=== PATIENT | female | born 1940 | race Caucasian/White ===

== ENCOUNTER 2017-01-05 16:23 | Emergency (ER) | payer BC ==
[~2017-01-05] VITALS: Ht 154.9 cm; Wt 46.0 kg
[~2017-01-05 16:23] MED LIST: Amoxicillin/Clavulanate Potas PO; DONE23TA PO; LISI-461 PO; MEMA10TA PO; SIMV5TAB2 PO
[2017-01-05 16:44] VITALS: BP 141/83; TEMP 36.4; Ht 154.9 cm; Wt 46.0 kg
[2017-01-05] MEDS ORDERED: CHOL20009 PO (16:53)
[2017-01-05] MEDS ORDERED: NRV/10 PO (16:53)
--- NOTE | 2017-01-05 18:31 | EMERGENCY ROOM VISIT NOTE ---
History First contact with patient: 16:48 Chief Complaint: FALL Stated Complaint: FELL AT ADULT DAY CARE,POSSIBLE LF LEG INJURY History of Present Illness The patient is a 76 year old female who presents to the Emergency Room with complaints of fall. The patient has severe dementia and Alzheimer's. She goes to adult daycare. Today, she was walking the halls and was thought to have tripped over a rug. The patient was assisted up off the floor. She seemed to be favoring her left leg per staff but the patient's family member believes she was favoring her right leg. They deny any loss of consciousness or head injury. The patient does not complain of any pain. The patient has had some swelling in the bilateral lower extremities. She did see her family doctor on Sunday. Review of Systems A 10 system review of systems was completed with positives and pertinent negatives listed in the HPI. The history was obtained from the family member given the baseline dementia Past Medical/Surgical History Medical Problems: (1) Alzheimer's Disease (2) Cataract Nos (3) Hypertension Nos (4) Idiopathic Scoliosis (5) Thoracogenic Scoliosis Social History Smoking Status: Never Smoker Alcohol Use: none Drug Use: none Marital Status: Housing Status: lives with family Occupation Status: retired Current/Historical Medications Scheduled Amlodipine Besylate (Amlodipine Besylate), 10 MG PO DAILY Cholecalciferol (Vitamin D), 2,000 UNITS PO DAILY Donepezil Hydrochloride (Aricept), 1 TAB PO DAILY Lisinopril (Lisinopril), 1 TAB PO DAILY Memantine Hcl (Namenda), 10 MG PO BID Allergies Coded Allergies: No Known Allergies (Unverified , 07/18/15) Physical Exam Vital Signs Date Time Temp Pulse Resp B/P Pulse Ox O2 Delivery O2 Flow Rate FiO2 01/05/17 19:26 72 12 99 01/05/17 16:44 36.4 101 18 141/83 98 Room Air Physical Exam VITALS: Vitals are noted on the nurse's note and reviewed by myself. Vital signs stable. GENERAL: This is a 76 year old female, in no acute distress, nondiaphoretic, well-developed well-nourished. SKIN: The skin was without rashes, erythema, edema, or bruising. There is no tenting of the skin. Capillary reflex less than 2 seconds. HEAD: Normocephalic atraumatic. EARS: External auditory canals clear, tympanic membranes pearly beard without erythema or effusion bilaterally. EYES: Pupils equal round and reactive to light and accommodation. Conjunctivae without injection, sclerae without icterus. Extraocular movements intact. NOSE: Patent, turbinates without inflammation or discharge. No sinus tenderness. MOUTH: Mucous membranes moist. Tonsils are not enlarged. Pharynx without erythema or exudate. Uvula midline. Airway patent. Tongue does not deviate. NECK: Supple without nuchal rigidity. No lymphadenopathy. No thyromegaly. Cervical spine is nontender. No JVD. HEART: Regular rate and rhythm without murmurs gallops or rubs. LUNGS: Clear to auscultation bilaterally without wheezes, rales or rhonchi. No dullness to percussion. No retractions or accessory muscle use. ABDOMEN: Positive bowel sounds x 4. Normal tympanic percussion. Soft, nontender, without masses or organomegaly. Jade sign negative. MUSCULOSKELETAL: No muscle atrophy, erythema, or edema noted. Full range of motion without joint tenderness in all extremities. No tenderness to palpation. Normal gait. Strength 5/5 throughout. NEURO: Patient was alert and oriented to person place and time. Normal sensation to light and sharp touch. Deep tendon reflexes 2+ throughout. No focal neurological deficits. Medical Decision & Procedures ER Provider Diagnostic Interpretation: LEFT TIBIA/FIBULA 2 VIEWS ROUTINE, LEFT ANKLE MIN 3 VIEWS ROUTINE CLINICAL HISTORY: fall, left leg pain COMPARISON STUDY: None. FINDINGS: Subcutaneous edema and superficial varicosities within the left lower leg. Small plantar heel spur. No acute fracture or dislocation. No radiopaque foreign bodies. Minimal periosteal reaction along the lateral masses of the distal fibula. IMPRESSION: 1. No acute fracture or dislocation within the left tibia, fibula, left ankle. 2. Diffuse subcutaneous edema. 3. Minimal periosteal reaction along the distal left fibula. This is nonspecific but favors long-standing venous stasis. An occult healing fracture could also have a similar appearance but is considered less likely. Follow-up radiograph in 2 weeks can be used for confirmation if clinically wanted. [~ rep ct add3]] PELVIS 1 OR 2 VIEW ROUTINE, LEFT FEMUR 2 VIEWS ROUTINE, RIGHT FEMUR 2 VIEWS ROUTINE CLINICAL HISTORY: fall. Pelvis and bilateral femur pain. COMPARISON STUDY: Right femur 07/19/2015. FINDINGS: Severe levoscoliosis within the lumbar spine. No fracture or dislocation within the pelvis or hips. Left downward tilt of the pelvis which is likely result of the scoliosis. Mild chondrocalcinosis within the bilateral hips. No fractures within the right or left femur. Diffuse muscle atrophy. An 18 mm patchy area of sclerosis within the distal left femur. This favors benign enchondroma. IMPRESSION: No fracture or dislocation within the pelvis, hips, or femurs. ED Course The patient was seen and examined. Previous visits were reviewed. The patient sustained a fall today. Examination and history are quite difficult given the patient's severe Alzheimer's and dementia. The patient seemed to have the most tenderness to palpation of the left ankle. On x-ray, there is periosteal reaction likely related to chronic venous stasis changes. There is no acute fracture. The patient's family member was advised to have repeat x-rays in 2 weeks if symptoms persist. The patient has had ongoing bilateral pedal edema. They were advised to follow-up with the family doctor regarding this. They were advised to elevate the legs as much as possible. They should return with any worsening symptoms. The patient was also seen and examined by who agrees with the assessment and treatment plan. Medical Decision The differential diagnosis includes contusion, sprain, strain, fracture, among others Impression Primary Impression: Fall Additional Impression: Pedal edema Departure Information Dispostion Home / Self-Care Condition GOOD Referrals Jarad Dominguez DO (PCP) Patient Instructions [facility] Additional Instructions Rest Elevate the legs as much as possible Recheck with Dr. Dominguez next week Return with worsening symptoms Problem Qualifiers
--- NOTE | 2017-01-05 18:41 | DIAGNOSTIC IMAGING REPORT ---
LEFT TIBIA/FIBULA 2 VIEWS ROUTINE, LEFT ANKLE MIN 3 VIEWS ROUTINE CLINICAL HISTORY: fall, left leg pain COMPARISON STUDY: None. FINDINGS: Subcutaneous edema and superficial varicosities within the left lower leg. Small plantar heel spur. No acute fracture or dislocation. No radiopaque foreign bodies. Minimal periosteal reaction along the lateral masses of the distal fibula. IMPRESSION: 1. No acute fracture or dislocation within the left tibia, fibula, left ankle. 2. Diffuse subcutaneous edema. 3. Minimal periosteal reaction along the distal left fibula. This is nonspecific but favors long-standing venous stasis. An occult healing fracture could also have a similar appearance but is considered less likely. Follow-up radiograph in 2 weeks can be used for confirmation if clinically wanted. Electronically signed by: Rafa Tirado M.D. 01/05/2017 6:39 PM Dictated Date/Time: 01/05/2017 6:35 PM
--- NOTE | 2017-01-05 18:45 | DIAGNOSTIC IMAGING REPORT ---
PELVIS 1 OR 2 VIEW ROUTINE, LEFT FEMUR 2 VIEWS ROUTINE, RIGHT FEMUR 2 VIEWS ROUTINE CLINICAL HISTORY: fall. Pelvis and bilateral femur pain. COMPARISON STUDY: Right femur 07/19/2015. FINDINGS: Severe levoscoliosis within the lumbar spine. No fracture or dislocation within the pelvis or hips. Left downward tilt of the pelvis which is likely result of the scoliosis. Mild chondrocalcinosis within the bilateral hips. No fractures within the right or left femur. Diffuse muscle atrophy. An 18 mm patchy area of sclerosis within the distal left femur. This favors benign enchondroma. IMPRESSION: No fracture or dislocation within the pelvis, hips, or femurs. Electronically signed by: Rafa Tirado M.D. 01/05/2017 6:43 PM Dictated Date/Time: 01/05/2017 6:39 PM
[2017-01-05 19:26] VITALS: PULSE 72; O2SAT 99
[2017-05-27] MEDS ORDERED: [UNRECOGNIZED DRUG - OTHER] (11:54)
[2017-05-27] MEDS ORDERED: LISI-725 PO (11:54)
[2017-05-27] MEDS ORDERED: DORZ1SOL6 OPB (11:54)
[2017-05-27] MEDS ORDERED: POLY1SOL6 OPB (11:54)
[2017-05-27] MEDS ORDERED: ACET-1311 PO (11:54)
[2017-05-28] MEDS ORDERED: DLCS PR (10:56)
[2017-05-28] MEDS ORDERED: RXC5 PO ×2 (10:56→12:47)
[2017-05-28] MEDS ORDERED: SENN8.6T7 PO (10:56)
[2017-05-28] MEDS ORDERED: MRLP17X PO (10:56)
== END 2017-01-05 19:28 | disposition home or self-care (01) ==
LOC: C.EDB 16:24 → C.EDD 19:28
DX: R60.9 Edema, unspecified (principal); W01.0XXA Fall on same level from slipping, tripping and stumbling without subsequent striking against object, initial encounter; Y92.129 Unspecified place in nursing home as the place of occurrence of the external cause; I10 Essential (primary) hypertension; G30.9 Alzheimer's disease, unspecified; F02.80 Dementia in other diseases classified elsewhere, unspecified severity, without behavioral disturbance, psychotic disturbance, mood disturbance, and anxiety; Z79.899 Other long term (current) drug therapy

== ENCOUNTER → 2017-05-08 | Outpatient (CLI) | payer BC ==
[~2017-05-08] MED LIST changes: +ACET-1311 PO; -Amoxicillin/Clavulanate Potas PO; +CHOL20009 PO; +DLCS PR; +DORZ1SOL6 OPB; +LISI-725 PO; +MRLP17X PO; +NRV/10 PO; +POLY1SOL6 OPB; +RXC5 PO; +SENN8.6T7 PO; -SIMV5TAB2 PO; +[UNRECOGNIZED DRUG - OTHER]
[2017-05-08 12:33] LABS: ESTIMATED AVERAGE GLUCOSE 117 mg/dl; HA1C FLAG Normal (Normal)
[2017-05-08 13:23] LABS: ALT/SGPT 30 U/L (12-78); AST/SGOT 23 U/L (15-37); BLOOD UREA NITROGEN 30 mg/dl (7-18); BUN/CREATININE RATIO 29.7 (10-20); CARBON DIOXIDE 27 mmol/L (21-32); CHLORIDE 108 mmol/L (98-107); GLUCOSE 76 mg/dl (70-99); POTASSIUM 4.1 mmol/L (3.5-5.1); SODIUM 142 mmol/L (136-145)
[2017-05-08 13:24] LABS: CHOLESTEROL 198 mg/dl (0-200); TRIGLYCERIDES 84 mg/dl (0-150); VERY LOW DENSITY LIPOPROT CALC 17 mg/dl
[2017-05-08 13:26] LABS: ALB/GLOB RATIO 0.9 (0.9-2); ALKALINE PHOSPHATASE 82 U/L (45-117); CALCIUM 9.4 mg/dl (8.5-10.1); HDL CHOLESTEROL 97 mg/dl; LDL CHOLESTEROL CALCULATED 84 mg/dl
--- NOTE | 2017-05-15 07:12 | CODING QUERY MEDICAL NECESSITY ---
CQSUPPORTING DIAGNOSIS NEEDED A supporting diagnosis is required for the test/procedure performed on this patient in order for us to be reimbursed by the patient's insurance. Please provide a supporting diagnosis for the following test/procedure listed below next to the test name along with your signature. *If there is no additional diagnosis for this patient that would support the following test/procedure please document that below next to the test/procedure. Test(s)/Procedure(s) that require a supporting diagnosis: RAJI 05/08/17 GLYCATED HEMOGLOBIN TEST Provider Signature: Date: Thank you Aleja Hansen Health Information Management Once completed, please kindly fax back to [phone] For questions please call [phone]
== END ==
LOC: C.LABCC 10:11
PROVIDERS: ATTEND Internal Medicine
DX: E78.5 Hyperlipidemia, unspecified (principal); E55.9 Vitamin D deficiency, unspecified; E11.9 Type 2 diabetes mellitus without complications

== ENCOUNTER → 2017-05-25 | Outpatient (CLI) | payer BC ==
[2017-05-25 17:42] LABS: URINE APPEARANCE CLEAR (CLEAR); URINE BILIRUBIN NEG (NEG); URINE COLOR YELLOW; URINE NITRITE NEG (NEG); URINE PH 6.5 (4.5-7.5); URINE SPECIFIC GRAVITY 1.024 (1.000-1.030); UROBILINOGEN NEG (NEG)
[2017-05-25 17:44] LABS: MANUAL MICROSCOPIC REQUIRED? NO; REVIEW REQ? NO
== END ==
LOC: C.LABSPEC 16:42
PROVIDERS: ATTEND Internal Medicine
DX: R41.0 Disorientation, unspecified (principal)

== ENCOUNTER 2017-05-26 17:50 | Inpatient (IN) | payer BC, OTHER ==
[~2017-05-26] VITALS: Ht 154.9 cm; Wt 52.0 kg
[~2017-05-26 17:50] MED LIST changes: -ACET-1311 PO; -DLCS PR; -DORZ1SOL6 OPB; -LISI-725 PO; -MRLP17X PO; -POLY1SOL6 OPB; -RXC5 PO; -SENN8.6T7 PO; -[UNRECOGNIZED DRUG - OTHER]
[2017-05-26 18:40] VITALS: Ht 154.9 cm; Wt 52.0 kg
[2017-05-26] MEDS ORDERED: ALUMINUM/MAGNESIUM/SIMETH (MAALOX MAX) 30 ML UDC PO PRN (19:15)
[2017-05-26] MEDS ORDERED: OXYCODONE HCL IR 5 MG TAB (IMMEDIATE RELEASE) PO PRN ×2 (19:15)
[2017-05-26] MEDS ORDERED: ENOXAPARIN 40 MG/0.4 ML SYR SQ SCH (19:15)
[2017-05-26] MEDS ORDERED: ACETAMINOPHEN 325 MG TAB PO PRN (19:15)
[2017-05-26] MEDS ORDERED: ONDANSETRON INJ 2 MG/ML 2 ML VIAL IV PRN (19:15)
[2017-05-26] MEDS ORDERED: SOD PHOSPHATE/SOD BIPHOSPHATE ENEMA 132 ML BTL PR PRN (19:15)
[2017-05-26] MEDS ORDERED: NALOXONE HCL 0.4 MG/1 ML VIAL/CARP IV PRN (19:15)
[2017-05-26] MEDS ORDERED: POLYETHYLENE (MIRALAX) 17 GM PACK PO PRN ×2 (19:15)
[2017-05-26] MEDS ORDERED: MAGNESIUM HYDROXIDE SUSP 30 ML UDC PO PRN ×2 (19:15)
[2017-05-26] MEDS ORDERED: BISACODYL 10 MG SUPP PR PRN (19:15)
--- NOTE | 2017-05-26 19:54 | History and Physical ---
History & Physical Date of Service May 26, 2017. History & Physical admit #[id number]
--- NOTE | 2017-05-26 20:34 | HISTORY & PHYSICAL EXAMINATION ---
DATE OF ADMISSION: 05/26/2017 CHIEF COMPLAINT: Hip fracture. HISTORY OF PRESENT ILLNESS: The patient is a very pleasant but demented 76-year-old. The history is obtained from charts as well as from the . Unfortunately is fairly thin. She lives at [facility] now due to her dementia. She likes to walk around a lot and she did actually have a fall about 2 weeks ago where she bruised around her right eye or at least they believe it was probably a fall, she is not able to really relate this. However, the notes that generally when she has had fall, she cannot get up on her own and so he would be extremely doubtful she could have a fall that would have broken her hip and then have her get up on her own. They found her to not be able to get up. She had a bit of a shortened leg and checked x-rays that found a recent appearing subcapital fracture of the neck of the left femur. Because of this, we were asked to see her in admission. HPI and review of systems are entirely unobtainable from the patient. From the that is the best we are able to ascertain is basically that she did not have any recent falls. REVIEW OF SYSTEMS: Otherwise unobtainable. PAST MEDICAL HISTORY: Includes osteoporosis, for which she is on vitamin D supplementation, had a recent vitamin D level just about 2 weeks ago of 38.8 and the recalls she was on Fosamax for at least 5 years until recently. She also has essential hypertension, dementia. Hyperlipidemia, impaired fasting glucose, vitamin D deficiency. CURRENT MEDICATIONS: Tylenol, prune juice, milk of magnesia, Dulcolax and Fleet's p.r.n. constipation, amlodipine 10 mg daily, donepezil 23 mg daily, Cosopt 1 drop into each eye b.i.d., lisinopril 20 mg daily, memantine 10 mg b.i.d., Systane 1 drop each eye t.i.d. and vitamin D 2000 international units daily. PAST SURGICAL HISTORY: None of significance. FAMILY HISTORY: No known osteoporosis, her sister had cancer. Mother had an NH. Father with COPD. SOCIAL HISTORY: She is remotely a short time former smoker, only whenever she was in college. She is . Her is very supportive. She lives in [facility]. ALLERGIES: No known drug allergies. PHYSICAL EXAMINATION: GENERAL: She is awake, alert and speaks nonsensically, but makes good eye contact and is in no acute distress. HEENT: Normocephalic, atraumatic other than a healing bruise around her right eye. Mucous membranes are moist. CARDIOVASCULAR: Regular without rubs, murmurs, or gallops. LUNGS: Clear to auscultation bilaterally. No rales, rhonchi, or wheezes with good effort. ABDOMEN: Soft, nondistended, nontender, no masses or organomegaly. EXTREMITIES: Without cyanosis, clubbing or edema. Her left lower extremity is somewhat shorter than the right. There is no calf tenderness. No erythema. No cords. SKIN: Shows no rashes, no pallor or icterus. NEUROLOGIC: Shows cranial nerves II-XII to be grossly intact. Gross motor and sensory are intact, as best can be ascertained. Mental state is as above and essentially is unobtainable. MUSCULOSKELETAL: As above in extremities with the left leg being shortened as the most significant finding, no other gross deformities are noted. LABS AND DIAGNOSTICS: Recent labs from about 2 weeks ago show a sodium of 142, potassium 4.1, chloride 108, CO2 27, BUN 30, creatinine 1, calcium 9.4, glucose 76, A1c of 5.7, vitamin D of 38.8. Total protein was 7.2 with an albumin of 3.4, triglycerides 84, total cholesterol 198 with an HDL of 97 and an LDL of 84. Hip x-ray shows a subcapital fracture of the neck of the left femur with minimal displacement. Lateral view not submitted, left hip joint appears intact. No abnormalities seen in the pelvis. ASSESSMENT AND PLAN: 1. Left hip fracture. This is likely an osteoporotic fracture, particularly given her known history of osteoporosis and the fact that it seems to be atraumatic. It sounds as though she has been treated appropriately for the osteoporosis and therefore after discharge, would recommend a referral to endocrinology to give considerations to a higher level of therapy. At this point certainly the fracture needs to be repaired. I have consulted orthopedic surgery. The patient and more notably, the are aware of this and willing to proceed. She appears to be certainly medically acceptable risk, probably low to maybe moderate at worst, but certainly the benefits of the procedure far outweigh the risks. We will check an EKG for completeness, keep her n.p.o. after midnight and hold her lisinopril until postop. 2. Osteoporosis as above. She is already on adequate vitamin D. She has been on a course of bisphosphonate. After discharge, we would refer to endocrine to consider next level therapies. 3. Hypertension. Continue her home meds with the exception of holding her lisinopril until postop. 4. Dementia. Continue her home meds as best as possible, try to provide reassurance and supportive care. 5. Deep venous thrombosis prophylaxis, Lovenox. Certainly it can be held preoperatively if orthopedics prefers. 6. Vitamin D deficiency. She is adequately replaced at this point, continue her 2000 international units daily.
--- NOTE | 2017-05-26 21:56 | DIAGNOSTIC IMAGING REPORT ---
PELVIS/BILATERAL HIP 2 VIEWS CLINICAL HISTORY: 76 years-old Female presenting with hip fracture status post fall. TECHNIQUE: Frontal view of the pelvis and frontal and lateral views of the bilateral hips were obtained. COMPARISON: Frontal view of the pelvis from 01/05/2017. FINDINGS: Subcapital left femoral neck fracture, which is mildly impacted. The left femoral head remains congruent in the acetabulum. Right hip normal. Remainder of pelvis within normal limits. Moderate stool burden. IMPRESSION: Impacted subcapital left femoral neck fracture. Electronically signed by: Santiago Roy M.D. 05/26/2017 9:55 PM Dictated Date/Time: 05/26/2017 9:53 PM
[2017-05-26] MEDS: DOCUSATE SODIUM/SENNA 50/8.6MG TAB PO SCH (22:05)
[2017-05-26] MEDS: MEMANTINE 10 MG TAB PO SCH (22:05)
--- NOTE | 2017-05-26 22:10 | Medical Consult ---
Consultation Note Date of Service May 26, 2017. Consultation Note CHIEF COMPLAINT: Left hip pain. HISTORY OF PRESENT ILLNESS: Patient is a pleasantly demented 76-year-old female from [facility]. She is very difficult to get any history from. Her is there and provided most of the information. He notes that she is a ambulator , but will not be able to follow directions. She apparently had a fall approximately 2 weeks ago that resulted in a bruised right eye. Since that fall she has not been ambulating as well as and had been complaining of hip pain. X-rays were obtained and per the report she had a nondisplaced left hip fracture. Past medical history: Osteoporosis, hypertension, dementia, hyperlipidemia, vitamin D deficiency, impaired fasting glucose. past surgical history: None of significance. MEDICATIONS: Tylenol, prune juice, milk of magnesia, Dulcolax and Fleet's p.r.n. constipation, amlodipine 10 mg daily, donepezil 23 mg daily, Cosopt 1 drop into each eye b.i.d., lisinopril 20 mg daily, memantine 10 mg b.i.d., Systane 1 drop each eye t.i.d. and vitamin D 2000 international units daily. ALLERGIES: No known drug allergies. FAMILY HISTORY: Osteoporosis. Sister cancer. Mother had an AR. Father COPD. SOCIAL HISTORY: Remote history of smoking and College. She is and her and is very supportive. She lives at [facility]. REVIEW OF SYSTEMS: Unable to obtain. PHYSICAL EXAM: Patient is in no acute distress. They weigh 52 kg and are 155 cm tall. Focusing on bilateral lower extremities, she has 2+ DP pulse, her sensation to light touch is difficult to assess, but after asking several times she does state that she can feel both feet and toes. With some prodding she is able to wiggle her toes and ankles. Her calves are soft and nontender. She has no pain with log roll of either hip. She will let me flex and extend her right knee and hip, but not her left. There does not appear to be any significant shortening or rotation of either leg. RADIOGRAPHS: AP pelvis AP and lateral bilateral hips show a valgus impacted left femoral neck fracture. IMPRESSION: Left femoral neck valgus impacted fracture, initial visit. PLAN: After a lengthy discussion with the regarding her above clinical findings, her treatment options included bed to chair versus percutaneous pinning versus open reduction internal fixation versus hemiarthroplasty. At the time of discussing her care, the x-rays were unavailable for my review. The risks of surgery were discussed and include but not limited to: bleeding, infection, re-operation, damage to nerves and arteries, continued pain, failure of the hardware, mal-union, non-union, DVT, and . In addition she is aware of the 20-30% morbidity associated with hip fracture for up to 1 year following a hip fracture. The patient's understands all of these instructions and explanations, all of their questions have been satisfactorily addressed. The informed consent was signed. We will discuss her care further in the morning after reviewing her radiographs and her treatment options again. If she is medically stable and he wishes to proceed with surgery, I would recommend a left hip hemiarthroplasty now that I have seen the x-rays.
[2017-05-26 23:39] VITALS: BP 138/82; PULSE 87; TEMP 37; O2SAT 91
[2017-05-27 07:57] VITALS: BP 139/77; PULSE 81; TEMP 36.6; O2SAT 91
[2017-05-27 08:29] LABS: BASO % 0.2 %; BASO ABS # 0.02 K/uL (0-0.2); COMPLETE YES; HEMATOCRIT 37.9 % (37-47); IG% 0.2 %; LYMPH % 22.4 %; LYMPH ABS # 2.13 K/uL (1.2-3.4); MEAN CELL VOLUME 89.4 fL (80-100); MEAN CORPUSCULAR HEMOGLOBIN 29.7 pg (25-34); MEAN CORPUSCULAR HGB CONC 33.2 g/dl (32-36); MEAN PLATELET VOLUME 12.5 fL (7.4-10.4); MONO % 9.4 %; NEUT % 62.8 %; PLATELET COUNT 175 K/uL (130-400); RED BLOOD COUNT 4.24 M/uL (4.2-5.4); WHITE BLOOD COUNT 9.49 K/uL (4.8-10.8)
[2017-05-27 08:36] LABS: PROTHROMBIN TIME (PATIENT) 10.2 SECONDS (9.0-12.0)
--- NOTE | 2017-05-27 08:51 | Orthopedic Progress Note ---
Orthopedic Progress Note Date of Service May 27, 2017. Subjective Post OP Day: HD # 2 Denies: complaints Objective calves soft nontender LLE: calf soft & NT. NV unchanged. Date Time Temp Pulse Resp B/P (MAP) Pulse Ox O2 Delivery O2 Flow Rate FiO2 05/27/17 07:57 36.6 81 18 139/77 (97) 91 Room Air 05/27/17 02:00 Room Air 05/26/17 23:39 37.0 87 18 138/82 (100) 91 Room Air 05/26/17 18:40 Room Air Laboratory Results 24 Hours: Test 05/27/17 07:26 White Blood Count 9.49 K/uL Red Blood Count 4.24 M/uL Hemoglobin 12.6 g/dL Hematocrit 37.9 % Mean Corpuscular Volume 89.4 fL Mean Corpuscular Hemoglobin 29.7 pg Mean Corpuscular Hemoglobin Concent 33.2 g/dl Platelet Count 175 K/uL Mean Platelet Volume 12.5 fL Neutrophils (%) (Auto) 62.8 % Lymphocytes (%) (Auto) 22.4 % Monocytes (%) (Auto) 9.4 % Eosinophils (%) (Auto) 5.0 % Basophils (%) (Auto) 0.2 % Neutrophils # (Auto) 5.96 K/uL Lymphocytes # (Auto) 2.13 K/uL Monocytes # (Auto) 0.89 K/uL Eosinophils # (Auto) 0.47 K/uL Basophils # (Auto) 0.02 K/uL Prothromb Time International Ratio 1.0 Prothrombin Time 10.2 SECONDS Assessment & Plan Assessment: HD # 2, L hip valgus impacted subcapital hip fracture. Plan: NWB for now. Reviewed x-rays and options with patient's . Will obtain CT scan L hip to further assess the hip fracture and determine wether to treat conservatively vs L hip kiran-arthroplasty. Continue NPO for now. Continue care per primary service.
[2017-05-27 08:58] LABS: BUN/CREATININE RATIO 26.8 (10-20); CALCIUM 8.7 mg/dl (8.5-10.1); CREATININE 0.92 mg/dl (0.60-1.20); POTASSIUM 3.8 mmol/L (3.5-5.1)
[2017-05-27] MEDS ORDERED: DONEPEZIL HYDROCHLORIDE PO SCH (09:00)
[2017-05-27] MEDS ORDERED: LISINOPRIL 10 MG TAB PO SCH (09:00)
--- NOTE | 2017-05-27 09:43 | Hospitalist Progress Note ---
Hospitalist Progress Note Date of Service May 27, 2017. (Rachna Kelly PA-C) Subjective Pt evaluation today including: conversation w/ patient, conversation w/ family , physical exam, chart review, lab review, review of studies Pain: Minimal R hip PO Intake: Good Voiding: valencia catheter in place The patient was seen and examined this morning, her , Sher, is present at bedside. When i directed questions to the patient, she is unable to answer them due to advanced dementia. Al provides the majority of the history. She has been a permanent resident of [facility] since . Since then she does well and acts mostly independently in the Dementia unit there. Her major difficulties are with feeding herself, so caregivers or her assist with this. He also tells me she is largely incontinent, and normally doesn't use the bathroom. An indwelling valencia was placed here, but she normally doesn't have one. No plans for surgery at this time. Plan to discharge with WBAT after PT/OT see' s the patient today. Will need teaching with the walker as she hasn't used this before. ROS: No headache, chest pain, sob, + hip pain, no abdominal complaints including n/v/d/c, no lightheadedness/dizziness. Otherwise unobtainable due to dementia. (Rachna Kelly, CAROLYN) Objective Vital Signs Date Time Temp Pulse Resp B/P (MAP) Pulse Ox O2 Delivery O2 Flow Rate FiO2 05/27/17 07:57 36.6 81 18 139/77 (97) 91 Room Air 05/27/17 02:00 Room Air 05/26/17 23:39 37.0 87 18 138/82 (100) 91 Room Air 05/26/17 18:40 Room Air (Rachna Kelly, SLICKC) Physical Exam General Appearance: WD/WN, no apparent distress, + pertinent finding (sitting up in bedside chair, does not speak much, mostly nonsensical, follows 50% of commands) Eyes: PERRL, EOMI ENT: hearing grossly normal, pharynx normal Neck: supple, no JVD Respiratory/Chest: lungs clear, no respiratory distress, no accessory muscle use Cardiovascular: regular rate, rhythm Abdomen: normal bowel sounds, non tender, soft, + pertinent finding (valencia catheter in place draining clear yellow urine) Extremities: no pedal edema, no calf tenderness, + pertinent finding (R hip tenderness with palpation) Neurologic/Psychiatric: + pertinent finding (awake, not oriented,) Skin: normal color, warm/dry (Rachna Kelly PA-C) Laboratory Results Last 24 Hours Test 05/27/17 07:26 White Blood Count 9.49 K/uL Red Blood Count 4.24 M/uL Hemoglobin 12.6 g/dL Hematocrit 37.9 % Mean Corpuscular Volume 89.4 fL Mean Corpuscular Hemoglobin 29.7 pg Mean Corpuscular Hemoglobin Concent 33.2 g/dl Platelet Count 175 K/uL Mean Platelet Volume 12.5 fL Neutrophils (%) (Auto) 62.8 % Lymphocytes (%) (Auto) 22.4 % Monocytes (%) (Auto) 9.4 % Eosinophils (%) (Auto) 5.0 % Basophils (%) (Auto) 0.2 % Neutrophils # (Auto) 5.96 K/uL Lymphocytes # (Auto) 2.13 K/uL Monocytes # (Auto) 0.89 K/uL Eosinophils # (Auto) 0.47 K/uL Basophils # (Auto) 0.02 K/uL RDW Standard Deviation 47.7 fL RDW Coefficient of Variation 14.6 % Immature Granulocyte % (Auto) 0.2 % Immature Granulocyte # (Auto) 0.02 K/uL Prothrombin Time 10.2 SECONDS Prothromb Time International Ratio 1.0 Activated Partial Thromboplast Time 26.1 SECONDS Partial Thromboplastin Ratio 1.0 Sodium Level 142 mmol/L Potassium Level 3.8 mmol/L Chloride Level 111 mmol/L Carbon Dioxide Level 25 mmol/L Anion Gap 6.0 mmol/L Blood Urea Nitrogen 25 mg/dl Creatinine 0.92 mg/dl Est Creatinine Clear Calc Drug Dose 40.5 ml/min Estimated GFR () 71.1 Estimated GFR (Non- 61.3 BUN/Creatinine Ratio 26.8 Random Glucose 85 mg/dl Calcium Level 8.7 mg/dl (Rachna Kelly PA-C) Assessment and Plan This is a 76 yo F with PMHx of osteoporosis, hyperlipidemia, impaired fasting glucose, vitamin D deficiency presenting with L subcapital femur neck fracture Left hip fracture. - osteoporotic atraumatic fracture - Consider referral to endocrinology to give considerations to a higher level of therapy for osteoporosis considering her use of fosamax in the past. - Ortho consulted- Dr. Carolina plans to treat conservatively with WBAT and PT/OT and use of walker for ambulation. Will need a script for rolling walker prior to dc - Allow diet - Pain management with morphine, oxycodone - Bowel regimen on board Hypertension - Continue amlodipine 10 mg daily, resume lisinopril 20 mg QAM tomorrow morning since no plans for surgical intervention Dementia. - Continue Namenda 10 mg BID - try to provide reassurance and supportive care - Pt resides in dementia unit at [facility], await PT/OT recs for if can directly return there or if will need any step in between hospital and there. Vitamin D deficiency - Vit D level was checked recently (05/08/17) = 38.8 - continue 2000 international units daily DVT ppx: teds/scd on nonaffected leg, Lovenox CODE STATUS: FULL CODE Disposition: From [facility], likely discharge within 24 hours. (Rachna Kelly, PAJanesC) PA Physician Supervision Note: I interviewed and examined the patient. Discussed with Rachna Kelly PAC and agree with findings and plan as documented in the note. Any exceptions or clarifications are listed here: None pt is pleasantly confused, she has no planned surgery for non displaced hip fracture. is at bedside and understands plan vitals noted facial bruise, car is regular, lungs are clear will have PT OT pain control and move to snf, will stop valencia cath to aid in movement Documented By: Giovanni Colon (Giovanni Colon M.D.)
[2017-05-27] MEDS: AMLODIPINE BESYLATE 5 MG TAB PO SCH ×2 (09:46→10:54)
[2017-05-27] MEDS: CHOLECALCIFEROL 1000 INTER.UNIT TAB PO SCH ×2 (09:46→10:54)
[2017-05-27] MEDS: MEMANTINE 10 MG TAB PO SCH ×3 (09:46→20:46)
--- NOTE | 2017-05-27 10:10 | DIAGNOSTIC IMAGING REPORT ---
LEFT HIP-LOWER EXTREMITY WITHOUT HISTORY: 76 years-old Female follow-up left femur fracture seen on comparison radiographs. COMPARISON: Pelvis and left hip radiographs 05/26/2017 TECHNIQUE: Multiple axial CT images of the left hip were obtained without IV contrast. Coronal and sagittal reformatted images were obtained from the axial data set and cemented for review. A dose lowering technique was used consistent with the principals of ALARA. FINDINGS: Acute left femoral subcapital fracture is again seen with mild impaction of approximately 1.0 cm. There is approximately 8 mm cortical step-off noted posteriorly without significant displacement noted involving the anterior cortical margin. The femoral head is well-seated within the acetabular fossa. There is acetabular and pubic symphysis chondrocalcinosis noted. No acetabular fracture identified. The acetabulum and imaged pelvic bones are intact. There is prominent enthesopathy involving the left hamstring attachment site about the ischial tuberosity. Background osteopenia noted. Moderate degenerative changes of the left hip. Topete catheter is noted within a partially collapsed or bladder lumen. 1.8 x 1.5 cm soft tissue focus lateral to the urinary bladder lumen suspicious for bladder diverticulum. Large volume of intraluminal air is seen within the urinary bladder lumen. There is a large stool ball within the rectum. Noninflamed colonic diverticula are noted. IMPRESSION: 1. Acute mildly impacted left femoral subcapital fracture is redemonstrated without significant displacement. 2. The bones are osteopenic. 3. Moderate degenerative changes of the left femoral acetabular joint with associated chondrocalcinosis. 4. Incidental findings include probable left lateral urinary bladder diverticulum and colonic diverticulosis. Moderate volume of air within the urinary bladder lumen with Topete catheter in place is likely secondary to instrumentation. The above report was generated using voice recognition software. It may contain grammatical, syntax or spelling errors. Electronically signed by: Koko Potts M.D. 05/27/2017 10:08 AM Dictated Date/Time: 05/27/2017 10:00 AM
[2017-05-27] MEDS: ACETAMINOPHEN 325 MG TAB PO PRN (10:58)
[2017-05-27] MEDS ORDERED: POLY1SOL6 OPB ×2 (11:54)
[2017-05-27] MEDS ORDERED: LISI-725 PO ×2 (11:54)
[2017-05-27] MEDS ORDERED: [UNRECOGNIZED DRUG - OTHER] ×2 (11:54)
[2017-05-27] MEDS ORDERED: DORZ1SOL6 OPB ×2 (11:54)
[2017-05-27] MEDS ORDERED: ACET-1311 PO ×2 (11:54)
[2017-05-27 15:23] LABS: URINE APPEARANCE CLEAR (CLEAR); URINE BILIRUBIN NEG (NEG); URINE COLOR YELLOW; URINE NITRITE NEG (NEG); URINE PH 5.5 (4.5-7.5); UROBILINOGEN NEG (NEG); ZZURINE CULT IF INDIC CATH NO
[2017-05-27 15:24] LABS: MANUAL MICROSCOPIC REQUIRED? NO; REVIEW REQ? NO
[2017-05-27 15:47] VITALS: BP 137/76; PULSE 81; TEMP 36.9; O2SAT 91
[2017-05-27] MEDS: DOCUSATE SODIUM/SENNA 50/8.6MG TAB PO SCH (20:46)
[2017-05-27] MEDS: DORZOLAMIDE/TIMOLOL 22.3/6.8MG/ML 10 ML BTL OPB SCH (20:46)
[2017-05-27] MEDS ORDERED: ENOXAPARIN 40 MG/0.4 ML SYR SQ SCH (21:00)
[2017-05-27 22:57] VITALS: BP 155/75; PULSE 71; TEMP 36.8; O2SAT 91
[2017-05-28 07:57] VITALS: BP 132/68; PULSE 112; TEMP 36.8; O2SAT 91
[2017-05-28 08:00] VITALS: O2SAT 91
--- NOTE | 2017-05-28 08:27 | Orthopedic Progress Note ---
Orthopedic Progress Note Date of Service May 28, 2017. Subjective Post OP Day: HD #3 Denies: complaints Objective calves soft nontender, N/V intact, capillary refill less than 2 sec. Doesn't follow commands. Distal dorsalis pedis pulse trace. Nontender with palpation of left knee/calf/foot and ankle. No ecchymosis noted left hip. Right knee bent and tolerates ROM right leg. Date Time Temp Pulse Resp B/P (MAP) Pulse Ox O2 Delivery O2 Flow Rate FiO2 05/28/17 07:57 36.8 112 14 132/68 (89) 91 Room Air 05/28/17 00:44 Room Air 05/27/17 22:57 36.8 71 14 155/75 (101) 91 Room Air 05/27/17 15:47 36.9 81 18 137/76 (96) 91 Room Air 05/27/17 15:15 Room Air 05/27/17 09:30 Room Air Assessment & Plan Assessment: HD # 3, L hip valgus impacted subcapital hip fracture. Plan: May be OOB/WBAT with assistance & walker Plan for nonoperative treatment of left subcapital hip fracture. Dr. Carolina discussed with family yesterday. Regular diet Continue care per primary service Follow up with Dr. Carolina, will need close outpatient follow up for left hip fracture Call [phone] with any questions or concerns. Findings will be discussed with Dr. Carolina.
--- NOTE | 2017-05-28 08:48 | Consultant Recommendations ---
Paving Inspector Recommendations Date of Service May 28, 2017. Paving Inspector Recommendations WBAT LLE - use walker and assist with walking Non- operative left hip fracture Ok to move left hip for transfers and light ADL's You have a follow up appointment with Dr. Carolina on 06/06/17 at 2:00 p.m. Please call [phone] to confirm or reschedule appointment.
[2017-05-28] MEDS ORDERED: LISINOPRIL 20 MG TAB PO SCH (09:00)
[2017-05-28] MEDS: MEMANTINE 10 MG TAB PO SCH (09:39)
[2017-05-28] MEDS: CHOLECALCIFEROL 1000 INTER.UNIT TAB PO SCH (09:40)
[2017-05-28] MEDS: AMLODIPINE BESYLATE 5 MG TAB PO SCH (09:40)
[2017-05-28] MEDS: DORZOLAMIDE/TIMOLOL 22.3/6.8MG/ML 10 ML BTL OPB SCH (09:40)
[2017-05-28] MEDS: ACETAMINOPHEN 325 MG TAB PO PRN (09:42)
[2017-05-28 10:30] VITALS: PULSE 58
[2017-05-28] MEDS ORDERED: RXC5 PO ×4 (10:56→12:47)
[2017-05-28] MEDS ORDERED: SENN8.6T7 PO ×2 (10:56)
[2017-05-28] MEDS ORDERED: MRLP17X PO ×2 (10:56)
[2017-05-28] MEDS ORDERED: DLCS PR ×2 (10:56)
--- NOTE | 2017-05-28 11:03 | Discharge Instructions ---
Discharge Instructions Date of Service May 28, 2017. Admission Reason for Admission: Non Displaced Hip Fx Discharge Discharge Diagnosis / Problem: Left subcapital femoral neck fracture Discharge Goals Goal(s): Decrease discomfort, Improve function, Increase independence, Improve disease control Activity Recommendations Activity Limitations: resume your previous activity Lifting Limitations: no more than 10 pounds, gradually increase as tolerated Exercise/Sports Limitations: none Shower/Bathe: no limitations (with assistance) Driving or Machine Use: DO NOT DRIVE . Instructions / Follow-Up Instructions / Follow-Up You were admitted to [facility] with Left subcapital femoral neck fracture. You were evaluated by Orthopedics and it was determined that this did not require surgical fixation. You were evaluated by physical therapy and occupational therapy. It was recommended that you use a rolling walker with ambulation. During your stay here you were treated supportive care. Medications: You have been prescribed oxycodone for pain, please use this as directed. Caution as narcotics have the potential to slow bowel motility. A bowel regimen has also been prescribed- see changes per Medication section. Appointments: Follow up with your Primary Care Provider within 24-48 hours upon return to [facility]. Current Hospital Diet Patient's current hospital diet: Regular Diet Discharge Diet Recommended Diet: Regular Diet Pending Studies Studies pending at discharge: no Laboratory Results Hemoglobin A1c Test 05/08/17 07:43 Range/Units Estimated Average Glucose 117 mg/dl Hemoglobin A1c 5.7 H 4.5-5.6 % Lipid Panel Test 05/08/17 07:43 Range/Units Triglycerides Level 84 0-150 mg/dl Cholesterol Level 198 0-200 mg/dl HDL Cholesterol 97 mg/dl Cholesterol/HDL Ratio 2.0 LDL Cholesterol, Calculated 84 mg/dl Medical Emergencies . Who to Call and When: Medical Emergencies: If at any time you feel your situation is an emergency, please call 911 immediately. . Non-Emergent Contact Non-Emergency issues call your: Primary Care Provider Call Non-Emergent contact if: you have a fever, temperature is above 100.5, your pain is not controlled, your pain is worsening, your pain is unusual for you, your pain is concerning you, you have any medication questions . Past History Medical & Surgical History: (1) Hip fracture (2) Alzheimer's Disease (3) Hypertension Nos (4) Idiopathic Scoliosis (5) Cataract Nos . "Provider Documentation" section prepared by Debbie Kelly. . Inspector Elevators Recommendations Inspector Elevators Recommendations: WBAT LLE - use walker to assist with walking Non- operative left hip fracture Ok to move left hip for transfers and light ADL's You have a follow up appointment with Dr. Carolina on 06/06/17 at 2:00 p.m. Please call [phone] to confirm or reschedule appointment. VTE Core Measure Inpt VTE Proph given/why not?: Enoxaparin (Lovenox)SQ, T.E.D. Stockings, SCD's
--- NOTE | 2017-05-28 13:01 | Discharge Summary ---
Discharge Summary Date of Service May 28, 2017. (Rachna Kelly PA-C) Discharge Summary Admission Date: May 26, 2017 at 18:41 Discharge Date: May 28, 2017 [facility] Principal Diagnosis: Left Subcapital femoral neck fracture Problems/Secondary Diagnoses: osteoporosis, hyperlipidemia, impaired fasting glucose, vitamin D deficiency Procedures: PELVIS/BILATERAL HIP 2 VIEWS CLINICAL HISTORY: 76 years-old Female presenting with hip fracture status post fall. TECHNIQUE: Frontal view of the pelvis and frontal and lateral views of the bilateral hips were obtained. COMPARISON: Frontal view of the pelvis from 01/05/2017. FINDINGS: Subcapital left femoral neck fracture, which is mildly impacted. The left femoral head remains congruent in the acetabulum. Right hip normal. Remainder of pelvis within normal limits. Moderate stool burden. IMPRESSION: Impacted subcapital left femoral neck fracture. Electronically signed by: Santiago Roy M.D. 05/26/2017 9:55 PM Dictated Date/Time: 05/26/2017 9:53 PM The status of this report is Signed. LEFT HIP-LOWER EXTREMITY WITHOUT HISTORY: 76 years-old Female follow-up left femur fracture seen on comparison radiographs. COMPARISON: Pelvis and left hip radiographs 05/26/2017 TECHNIQUE: Multiple axial CT images of the left hip were obtained without IV contrast. Coronal and sagittal reformatted images were obtained from the axial data set and cemented for review. A dose lowering technique was used consistent with the principals of ANA. FINDINGS: Acute left femoral subcapital fracture is again seen with mild impaction of approximately 1.0 cm. There is approximately 8 mm cortical step-off noted posteriorly without significant displacement noted involving the anterior cortical margin. The femoral head is well-seated within the acetabular fossa. There is acetabular and pubic symphysis chondrocalcinosis noted. No acetabular fracture identified. The acetabulum and imaged pelvic bones are intact. There is prominent enthesopathy involving the left hamstring attachment site about the ischial tuberosity. Background osteopenia noted. Moderate degenerative changes of the left hip. Topete catheter is noted within a partially collapsed or bladder lumen. 1.8 x 1.5 cm soft tissue focus lateral to the urinary bladder lumen suspicious for bladder diverticulum. Large volume of intraluminal air is seen within the urinary bladder lumen. There is a large stool ball within the rectum. Noninflamed colonic diverticula are noted. IMPRESSION: 1. Acute mildly impacted left femoral subcapital fracture is redemonstrated without significant displacement. 2. The bones are osteopenic. 3. Moderate degenerative changes of the left femoral acetabular joint with associated chondrocalcinosis. 4. Incidental findings include probable left lateral urinary bladder diverticulum and colonic diverticulosis. Moderate volume of air within the urinary bladder lumen with Topete catheter in place is likely secondary to instrumentation. The above report was generated using voice recognition software. It may contain grammatical, syntax or spelling errors. Electronically signed by: Koko Potts M.D. 05/27/2017 10:08 AM Dictated Date/Time: 05/27/2017 10:00 AM The status of this report is Signed. Consultations: Orthopedics (Rachna Kelly PA-C) Medication Reconciliation New Medications: Bisacodyl (Bisac-Evac) 10 Mg Supp 10 MG NM DAILY PRN for Constipation for 30 Days, #30 SUPP Oxycodone HCl (Oxycodone HCl) 5 Mg Tab 5 MG PO Q4H PRN for Moderate pain (pain scale 4-6) for 30 Days, #120 TAB Polyethylene (Miralax) 17 Gm Pow 17 GM PO DAILY PRN for Constipation for 30 Days, #30 DOSE Sennosides-Docusate Sodium (Senokot S) 1 Tab Tab 2 TAB PO HS for 30 Days, #60 TAB Continued Medications: Acetaminophen (Tylenol) 325 Mg Tab 650 MG PO Q6, TAB prn temp > 100 or as needed for pain. Amlodipine Besylate (Amlodipine Besylate) 10 Mg Tab 10 MG PO DAILY Cholecalciferol (Vitamin D) 2,000 Unit Tab 2000 UNITS PO DAILY Donepezil Hydrochloride (Aricept) 23 Mg Tab 1 TAB PO DAILY Dorzolamide Hcl-Timolol Maleat (Cosopt Oph) 1 Antonella Antonella 1 DROPS OPB BID, #10 ML Lisinopril (Zestril) 20 Mg Tab 20 MG PO DAILY, TAB Memantine Hcl (Namenda) 10 Mg Tab 10 MG PO BID, TAB Polyethylene Glycol-Propylene (Systane Ultra) 1 Antonella Antonella 1 DROPS OPB TID, #30 ML [bowel protocol] () step 1: if no bowel movement in 2 days, give prune juice/stewed prunes or other fiber supplement per residents preference. Step 2: give milk of magnesium 30 ml day 3 per protocol [id number] shift as needed. Step 3 Give dulcolax suppository per rectum day 3 per protocol [id number] shift as needed. Step 4 Give fleets enema per rectum day 4 per protocol [id number] shift as needed. Discharge Exam The patient was seen and examined this morning. Pt reports feeling ok. Her is present at bedside any speaks for his . She is very sleepy today. PT/OT worked with the patient and agree she should use a rolling walker for ambulation at [facility]. Review of Systems: Constitutional: No fever, No chills, No sweats, No fatigue Eyes: No diplopia, No problem reported ENT: + problem reported (needs assistance with feedings), No trouble swallowing Respiratory: No cough, No shortness of breath Cardiovascular: No chest pain, No palpitations Abdomen: No pain, No nausea, No vomiting Musculoskeletal: + joint pain (mild R hip), No swelling, No calf pain Genitourinary - Female: No dysuria Endocrine: No fatigue Integumentary: No rash, No itch Physical Exam: General Appearance: WD/WN, no apparent distress, + pertinent finding ( speech is mostly nonsensical, follows 50% of commands) Eyes: PERRL, EOMI ENT: hearing grossly normal, pharynx normal Neck: supple, no JVD Respiratory/Chest: lungs clear, no respiratory distress, no accessory muscle use Cardiovascular: regular rate, rhythm Abdomen / GI: normal bowel sounds, non tender, soft Extremities: no calf tenderness, no pedal edema, + pertinent finding (R hip nontender) Neurologic/Psychiatric: + disoriented Skin: normal color, warm/dry (Rachna Kelly, CAROLYN) Hospital Course HISTORY OF PRESENT ILLNESS: The patient is a very pleasant but demented 76-year-old. The history is obtained from charts as well as from the . Unfortunately is fairly thin. She lives at [facility] now due to her dementia. She likes to walk around a lot and she did actually have a fall about 2 weeks ago where she bruised around her right eye or at least they believe it was probably a fall, she is not able to really relate this. However, the notes that generally when she has had fall, she cannot get up on her own and so he would be extremely doubtful she could have a fall that would have broken her hip and then have her get up on her own. They found her to not be able to get up. She had a bit of a shortened leg and checked x-rays that found a recent appearing subcapital fracture of the neck of the left femur. Because of this, we were asked to see her in admission. HPI and review of systems are entirely unobtainable from the patient. From the that is the best we are able to ascertain is basically that she did not have any recent falls. PHYSICAL EXAMINATION: GENERAL: She is awake, alert and speaks nonsensically, but makes good eye contact and is in no acute distress. HEENT: Normocephalic, atraumatic other than a healing bruise around her right eye. Mucous membranes are moist. CARDIOVASCULAR: Regular without rubs, murmurs, or gallops. LUNGS: Clear to auscultation bilaterally. No rales, rhonchi, or wheezes with good effort. ABDOMEN: Soft, nondistended, nontender, no masses or organomegaly. EXTREMITIES: Without cyanosis, clubbing or edema. Her left lower extremity is somewhat shorter than the right. There is no calf tenderness. No erythema. No cords. SKIN: Shows no rashes, no pallor or icterus. NEUROLOGIC: Shows cranial nerves II-XII to be grossly intact. Gross motor and sensory are intact, as best can be ascertained. Mental state is as above and essentially is unobtainable. MUSCULOSKELETAL: As above in extremities with the left leg being shortened as the most significant finding, no other gross deformities are noted. Hospital Course: This is a 76 yo F with PMHx of osteoporosis, hyperlipidemia, impaired fasting glucose, vitamin D deficiency presenting with L subcapital femur neck fracture Left hip fracture. - osteoporotic atraumatic fracture - Consider referral to endocrinology to give considerations to a higher level of therapy for osteoporosis considering her use of fosamax in the past. - Ortho consulted- Dr. Carolina plans to treat conservatively with WBAT and PT/OT and use of walker for ambulation - PT/OT have seen the pt and recs use of RW with ambulation. continue PT/OT at SNF. - Allow diet - Pain management with morphine, oxycodone - Bowel regimen on board Hypertension - Continue amlodipine 10 mg daily, resume lisinopril 20 mg QAM tomorrow morning since no plans for surgical intervention Dementia. - Continue Namenda 10 mg BID - try to provide reassurance and supportive care - Pt resides in dementia unit at [facility] Vitamin D deficiency - Vit D level was checked recently (05/08/17) = 38.8 - continue 2000 international units daily DVT ppx: teds/scd on nonaffected leg, Lovenox CODE STATUS: FULL CODE Disposition: From [facility], discharge today Total Time Spent: Greater than 30 minutes This includes examination of the patient, discharge planning, medication reconciliation, and communication with other providers. (Rachna Kelly PA-C) ROXIE Physician Supervision Note: I interviewed and examined the patient. Discussed with Rachna Kelly PAC and agree with findings and plan as documented in the note. Any exceptions or clarifications are listed here: None Patient remains pleasant confused I was requested to do a [id number] evaluation with her insurance company for replacement [facility] I did not on 05/28 Vital signs are stable Patient is painful to move her confusion limits her ability to follow commands Nondisplaced nonoperable hip fracture with return to half-way facility Alzheimer's unit with pain management and encouragement for persistent movement and physical therapy. Attention paid to bowel regimen given pain control Documented By: Giovanni Colon (Giovanni Colno M.D.) Discharge Instructions Please refer to the electronic Patient Visit Report (Discharge Instructions) for additional information. (Rachna Kelly PA-C) Follow-Up Follow up with your Primary Care Provider at [facility] within 24-48 hrs. (Rachna Kelly PA-C)
[2017-05-28 13:52] VITALS: BP 132/68; PULSE 58; TEMP 36.8; O2SAT 91
== END 2017-05-28 15:31 | DRG 544 ==
LOC: C.MSN 18:41
PROVIDERS: ADMIT Family Medicine; ATTEND Internal Medicine
DX: M80.852A Other osteoporosis with current pathological fracture, left femur, initial encounter for fracture (principal); F03.90 Unspecified dementia, unspecified severity, without behavioral disturbance, psychotic disturbance, mood disturbance, and anxiety; I10 Essential (primary) hypertension; E55.9 Vitamin D deficiency, unspecified; E78.5 Hyperlipidemia, unspecified; W19.XXXA Unspecified fall, initial encounter; Y92.129 Unspecified place in nursing home as the place of occurrence of the external cause

== ENCOUNTER → 2017-06-12 | Outpatient (CLI) | payer BC ==
[~2017-06-12] MED LIST changes: +ACET-1311 PO; +DLCS PR; +DORZ1SOL6 OPB; -LISI-461 PO; +LISI-725 PO; +MRLP17X PO; +POLY1SOL6 OPB; +RXC5 PO; +SENN8.6T7 PO; +[UNRECOGNIZED DRUG - OTHER]
== END | disposition home or self-care (01) ==
LOC: C.RDSM 14:13
PROVIDERS: ATTEND Orthopaedic Surgery Sports Medicine
DX: Z09 Encounter for follow-up examination after completed treatment for conditions other than malignant neoplasm (principal)

== ENCOUNTER → 2017-08-22 | Outpatient (CLI) | payer BC | END | disposition home or self-care (01) | LOC: C.RDSM 14:15 | PROVIDERS: ATTEND Orthopaedic Surgery Sports Medicine | DX: Z09 Encounter for follow-up examination after completed treatment for conditions other than malignant neoplasm (principal); M25.552 Pain in left hip ==

== ENCOUNTER → 2017-11-22 | Outpatient (CLI) | payer BC | END | disposition home or self-care (01) | LOC: C.RDSM 13:30 | PROVIDERS: ATTEND Orthopaedic Surgery Sports Medicine | DX: Z87.81 Personal history of (healed) traumatic fracture (principal) ==